=== PATIENT | male | born 1950 | race Caucasian/White ===

== ENCOUNTER 2016-10-20 19:04 | Observation (INO) | payer MEDICARE, OTHER ==
--- NOTE | ~2016-10-20 | HP ---
History And Physical [facility] [address] [place]. [address] NAME: ED SAMAYOA : 50 STATUS : ADM IN [facility]#: [id number] AGE: 65 ADM/REG DATE : 10/20/16 MR#: [id number] REPORT SERV DATE: 10/21/16 DICTATED BY: TEJA ORTIZ DATE: 10/20/16 REPORT STATUS : Draft TRANSCRIBED BY: MODL DATE: 10/20/16 DATE OF ADMISSION: 10/20/2016 INDICATION: Chest pain, abnormal perfusion study. 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 He was found to have an abnormal D-dimer and elevated creatinine. He was admitted overnight. He had a lung perfusion study that was read as low probability for a pulmonary embolism. An ultrasound of the lower extremities was performed, which showed no evidence of DVT. The patient did have a nuclear perfusion study that was abnormal with reported evidence of inferior ischemia. I do not have that result. [facility] was contacted by the patient's admitting service and request for transfer to [facility] for further evaluation made. The patient reports that for approximately 4 days prior to admission he was having significant precordial distress, describes it as a heavy achy sensation that he experienced at rest. Not a clear exertional component to it. Had some associated shortness of breath. Chest x-ray at [facility] was reported as elevation of right hemidiaphragm, but no acute process. The patient reports no nausea or vomiting. No orthopnea or PND. Does have some chronic lower extremity edema. He had apparently been on antibiotics as well, but unclear as to for what. PAST MEDICAL HISTORY: Reflux and hypertension. HOME MEDICATIONS: Aspirin, erythromycin, but last dose unknown as when it was taken. Takes hydrochlorothiazide 12.5 and lisinopril 20 daily, and omeprazole 20 mg at bedtime. ALLERGIES: NONE KNOWN. SOCIAL HISTORY: Occasional alcohol. No smoking. FAMILY HISTORY: Reviewed and noncontributory. REVIEW OF SYSTEMS: As per the HPI. Otherwise, all other review of systems negative. PHYSICAL EXAMINATION: VITAL SIGNS: Blood pressure 143/96, heart rate 100 to 105, respiratory rate is 18. The patient is afebrile. GENERAL: Appears stated age, no distress. EYES: Sclerae anicteric, no arcus senilis. MOUTH: Oral mucosa moist, lips acyanotic. NECK: Jugular venous pressure normal, no carotid bruits. LUNGS: Clear to auscultation bilaterally, normal inspiratory effort. CARDIAC: Regular rate and rhythm, no murmurs, gallops or rubs. History And Physical [address] [address] NAME: ED SAMAYOA : 50 STATUS : ADM IN PAT#: [id number] AGE: 65 ADM/REG DATE : 10/20/16 MR#: [id number] REPORT SERV DATE: 10/21/16 DICTATED BY: TEJA ORTIZ DATE: 10/20/16 REPORT STATUS : Draft TRANSCRIBED BY: RICHARD DATE: 10/20/16 ABDOMEN: Soft, nondistended, nontender. EXTREMITIES: Mild edema. SKIN: Warm and dry. NEURO/PSYCH: Alert and oriented, nonfocal, mood appropriate. LABORATORY AND DIAGNOSTIC STUDIES: Troponin negative on presentation. Normal AST and ALT. Creatinine 1.8 on presentation, but reported to be down to 1.2. Sodium 133, potassium 4.1. Chest x-ray, elevation of right hemidiaphragm. Otherwise, no acute process. Electrocardiogram, sinus tachycardia at 119 beats per minute with an S1, Q3, T3 pattern noted, which did raise the concern of possible pulmonary embolism, but as stated above perfusion study for PE negative. IMPRESSION: 1. Acute coronary syndrome with abnormal perfusion imaging with evidence of inferior ischemia. 2. Abnormal D-dimer at 1.52. No evidence of deep vein thrombosis by lower extremity Doppler and lung perfusion study negative for pulmonary embolism. 3. Chronic kidney disease with probable acute kidney injury and given element of volume depletion as creatinine apparently had significantly improved with hydration. 4. Hypertension, currently stable. We will hold TYREL inhibitor, diuretic combination, given elevated creatinine on admission, and plan to treat as needed with hydralazine and amlodipine. Recheck creatinine in a.m. RECOMMENDATIONS: We will plan to pre-hydrate for catheterization. Discussed with the patient coronary arteriography and possible percutaneous intervention. I have addressed the rationale, logistics, and risks of the procedure. Risks include, but not limited to bleeding, infection, vascular complications, myocardial infarction, stroke, possible need for emergent surgery. All questions answered. We will obtain echocardiogram to assess ejection fraction. SHANE/RICHARD Teja Ortiz M.D. / [id number] CC: Sarah Tamez M.D.
[~2016-10-20 19:04] MED LIST: ASAB PO; ERY-TAB500 MG PO; PRILO PO; ZESTORETIC PO
[2016-10-21] MEDS ORDERED: PRILO PO (04:04)
[2016-10-21] MEDS ORDERED: ASAB PO (04:04)
[2016-10-21] MEDS ORDERED: PRINZIDE1 TA1 PO (04:04)
[2016-10-21] MEDS ORDERED: STEROID INJECTION IM (04:05)
[2016-10-21 05:04] LABS: HEMOGLOBIN 12.9 g/dL (13.6-17.8); MEAN CORPUS HGB CONC 35.1 g/dL (32.0-36.0); MEAN CORPUSCULAR HEMOGLOB 30.7 pg (26.0-34.0); MEAN CORPUSCULAR VOLUME 87.4 fL (80-100); MEAN PLATELET VOLUME 10.3 fL (9.2-13.0); PLATELET COUNT 198 10/3/uL (150-400); RBC DISTRIBUTION WIDTH 13.1 % (12.0-16.0); WHITE BLOOD CELLS 6.4 10/3/uL (4.5-10.5)
[2016-10-21 05:07] LABS: HEMATOCRIT 36.7 % (40.0-51.0); MANUAL DIFF YES %
[2016-10-21 05:15] LABS: INTERNATIONAL NORMAL RATI 1.2 UNITS (-); PROTIME (NOT ORD) 14.8 SEC (12.0-14.5)
[2016-10-21 05:29] LABS: CALCIUM, SERUM 8.8 MG/DL (8.5-10.4); CHLORIDE, SERUM 108 MMOL/L (96-112); CO2 (CARBON DIOXIDE) 23 MMOL/L (24-34); CREATININE 0.97 MG/DL (0.70-1.30); GFR AFRICAN AMERICAN 95 ML/MIN (>=60); GFR NON AFRICAN AMERICAN 82 ML/MIN (>=60); GLUCOSE, SERUM 93 MG/DL (60-99); POTASSIUM, SERUM 4.4 MMOL/L (3.5-5.3); SGPT(ALT) 23 U/L (5-65); SODIUM, SERUM 139 MMOL/L (135-148); TROPONIN I <0.02 NG/ML (<0.05)
[2016-10-21 05:34] LABS: BUN (BLOOD UREA NITROGEN) 28 MG/DL (6-23); CHOL/HDL RATIO(NOT ORDER) 6.3 (0-5); CHOLESTEROL 120 MG/DL (< 200); HDL CHOLESTEROL 19 MG/DL (> 39); LDL CHOLESTEROL 75 MG/DL (< 130); NON-HDL CHOLESTEROL 101 MG/DL (< 160); TRIGLYCERIDE 134 MG/DL (< 150)
[2016-10-21 06:03] LABS: BAND NEUTROPHILS 1 %; BASOPHILS 1 %; BASOPHILS ABSOLUTE (CALC) 0.06 10/3/uL (0.0-0.16); EOSINOPHILS 3 %; EOSINOPHILS ABSOLUTE (CALC) 0.19 10/3/uL (0.0-0.53); LYMPHOCYTES 36 %; MONOCYTES 13 %; MONOCYTES ABSOLUTE (CALC) 0.83 10/3/uL (0.21-1.20); NEUTROPHILS ABSOLUTE (CALC) 3.01 10/3/uL (2.02-8.40); SEGMENTED NEUTROPHIL (0) 46 %; TOTAL NUCLEATED CELLS 100
[2016-10-21 06:04] LABS: PLATELET ESTIMATE ADQ (ADEQUATE)
[2016-10-21 06:05] LABS: RBC MORPHOLOGY NORM (NORMAL)
[2016-10-21] MEDS ORDERED: COREG6 PO (17:32)
[2016-10-21] MEDS ORDERED: PRIN5 PO (17:33)
== END 2016-10-21 20:00 | disposition home or self-care (01) ==
LOC: 5NO 19:04
PROVIDERS: Internal Medicine Cardiovascular Disease
DX: I25.110 Atherosclerotic heart disease of native coronary artery with unstable angina pectoris (principal); K21.9 Gastro-esophageal reflux disease without esophagitis; Z79.82 Long term (current) use of aspirin; Z79.2 Long term (current) use of antibiotics; Z79.899 Other long term (current) drug therapy; N18.9 Chronic kidney disease, unspecified; I12.9 Hypertensive chronic kidney disease with stage 1 through stage 4 chronic kidney disease, or unspecified chronic kidney disease; I24.9 Acute ischemic heart disease, unspecified
CPT/HCPCS: 80048; 80061; 83735; 84460; 84484; 85025; 85610; 85730; 93005; 93458; A9270-GY; C1769; C1887; C1894; C8929; G0378; J2250; J3010; Q9957; Q9967